=== PATIENT | female | born 1945 | race Caucasian/White ===

== ENCOUNTER → 2016-08-07 | Outpatient (CLI) | payer OTHER ==
[~2016-08-07] MED LIST: NA BICARBONATE 50 MEQ/50 ML VIAL ONE
--- NOTE | 2016-08-07 15:40 | US ---
Ultrasound-guided Fine-needle Aspiration Biopsy of Two Masses of Right Lobe of the Thyroid Gland History: Masses incidentally discovered in the thyroid on CT obtained at another institution. Consent: Risks and benefits of the procedure were discussed in detail. Informed consent was obtained . The patient accepted risks of nondiagnostic sample, internal bleeding, and infection. Technique: The right side of the neck was prepped and draped in sterile fashion. For ultrasound imag ing guidance, the transducer and cable were placed in a sterile cover, and sterile coupling gel was u sed. After local anesthetic with 1% Xylocaine, 7 passes were made with 22-gauge hypodermic needles in to the nodule of the upper pole of the right lobe of the thyroid gland. Then, 7 passes were made into mass of the lower pole of the right lobe. Specimens were sent to cytopathology. Initial report was inadequate cellularity, and additional sampl ing was requested. I then reprepped the neck, injected 1% Xylocaine for local anesthetic, and made 3 additional passes in the nodule of the upper pole and 4 additional passes into the mass of the lower pole of the right lobe of the thyroid gland. The patient asked to stop the procedure at that point. S terile dressings were applied, and the patient was allowed to leave the department. Findings: Well-defined, heterogeneous mass of the upper pole of the right lobe of the thyroid gland m easures 1.5 cm longitudinal x 1.3 cm AP x 1.2 cm transverse. Well-defined elliptical nodule of the lo wer pole of the left lobe of the thyroid gland measures 1.5 cm longitudinal x 0.9 cm AP x 1.7 cm putnam sverse. Viola terminate within these masses. Impression: Ultrasound-guided fine-needle aspiration biopsy of 2 separate masses in the right lobe of the thyroid gland. - - - - - - - - - - - - - - - - - - - - - - - - - - - - - - - - - - - - - - - - - - - - (PQRS Measures: Current medications were listed in the medical record, including all known prescript ions, [id number] medications, herbal medications, and nutritional supplements. Tobacco Use: Non e. Prophylactic antibiotic: Unnecessary. VTE prophylaxis: Unnecessary.)
== END ==
LOC: FIMAGING 12:18
PROVIDERS: ATTEND Surgery
PROC: 0GBH3ZX Excision of Right Thyroid Gland Lobe, Percutaneous Approach, Diagnostic (ICD-10-PCS; principal; 2016-08-07)
DX: E04.1 Nontoxic single thyroid nodule (principal)

== ENCOUNTER → 2016-08-29 | Outpatient (CLI) | payer OTHER ==
--- NOTE | 2016-08-29 16:45 | US ---
Abdomen Retroperitoneal Renal Ultrasound: 1415 hours Indications: Follow-up renal mass on the left. Previous right nephrectomy. Comparison to prior ultrasound from June 04, [address] from March 19, 2016 as well as ult rasound from January 01, 2016. Findings: Left kidney: Within the mid to upper left kidney along the medial aspect there is a hypoec hoic solid nodule that measures 2.6 x 2 x 1.8 cm that allowing for difference in technique appears to be stable when compared to the prior studies. Within the lower pole of the left kidney there is a ti ny hypoechoic additional solid nodule measuring 11 x 8 x 11 mm and appears stable when compared to th e prior CT studies. There is also a 5 mm cyst mid to upper left kidney laterally. No new solid masses are seen. The left kidney in total measures 12 x 5.7 x 5.2 cm with the cortex measuring 1.3 cm in thickness. Th ere are no masses in the right renal fossa from previous nephrectomy. Urinary bladder is unremarkable. No wall thickening or mass. Normal left ureteral jet is visualized. Prevoid volume: 493 mL Postvoid residual: 11 mL Impression: 1. Stable hypoechoic solid mass mid to upper left kidney when compared to the prior studies. 2. Stable small 1 cm hypoechoic mass lower pole left kidney seen on prior CT imaging. 3. Previous right nephrectomy. Consider continued follow-up 3-6 month ultrasound to confirm stability.
== END ==
LOC: FIMAGING 14:07
PROVIDERS: ATTEND Internal Medicine Hematology & Oncology
DX: N28.89 Other specified disorders of kidney and ureter (principal); Z90.5 Acquired absence of kidney

== ENCOUNTER → 2016-11-07 | Outpatient (CLI) | payer OTHER | LOC: BMCIMAGING 11:28 | PROVIDERS: ATTEND Internal Medicine Hematology & Oncology | DX: N28.89 Other specified disorders of kidney and ureter (principal); Z90.5 Acquired absence of kidney ==

== ENCOUNTER 2016-11-28 05:59 | Observation (INO) | payer OTHER ==
[~2016-11-28 05:59] MED LIST changes: -NA BICARBONATE 50 MEQ/50 ML VIAL ONE; +ceFAZolin 2 GM/DEXTROSE 100 ML IV ONE
[2016-11-28] MEDS ORDERED: CEFAZOLIN 2 GM/DEXTROSE/100 ML BAG IV ONE (06:50)
[2016-11-28] MEDS ORDERED: BUPIVACAINE 0.5% 30 ML SDV ONE (06:56)
[2016-11-28] MEDS ORDERED: THROMBIN (BOVINE) 5,000 UNIT VIAL TP ONE (06:56)
[2016-11-28] MEDS ORDERED: MIDAZOLAM 2 MG/2 ML VIAL ONE (07:18)
[2016-11-28] MEDS ORDERED: PROPOFOL 200 MG/20 ML VIAL ONE ×2 (07:26→08:56)
[2016-11-28] MEDS ORDERED: fentaNYL 250 MCG/5 ML INJ ONE (07:27)
[2016-11-28] MEDS ORDERED: LIDOCAINE 2% 5 ML SDV ONE (07:27)
[2016-11-28] MEDS ORDERED: ROCURONIUM 100 MG/10 ML VIAL ONE (07:27)
[2016-11-28] MEDS ORDERED: DEXAMETHASONE 4 MG/ML VIAL ONE (07:27)
[2016-11-28] MEDS ORDERED: ONDANSETRON 4 MG/2 ML VIAL ONE ×2 (07:27→10:45)
[2016-11-28] MEDS ORDERED: NEOSTIGMINE METHYLSULFATE 5 MG/5 ML SYR ONE (09:45)
[2016-11-28] MEDS ORDERED: GLYCOPYRROLATE 0.2 MG/1 ML VIAL ONE ×2 (09:45)
--- NOTE | 2016-11-28 09:46 | POSTOPPROG ---
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
[2016-11-28] MEDS ORDERED: ACETAMINOPHEN 325 MG TAB PO PRN (09:48)
[2016-11-28] MEDS ORDERED: ONDANSETRON 4 MG/2 ML VIAL IVP PRN (09:49)
[2016-11-28] MEDS ORDERED: fentaNYL 100 MCG/2 ML INJ ONE (10:13)
[2016-11-28] MEDS ORDERED: LORazepam 1 MG TAB PO PRN (12:36)
--- NOTE | 2016-11-28 13:19 | GOP ---
[f rep st] OPERATIVE REPORT DATE OF OPERATION: 11/28/2016 SURGEON: Dara Mackey MD SUSPENDER MAKER: Nimco Melara, JORDEN ANESTHESIA: Dr. Tam Dai/general. PREOPERATIVE DIAGNOSIS: Hurthle cell indeterminate for malignancy, right lower lobe thyroid. POSTOPERATIVE DIAGNOSIS: Hurthle cell indeterminate for malignancy, right lower lobe thyroid. PROCEDURE PERFORMED: Right hemithyroidectomy. FINDINGS: nodular thyroid SPECIMENS: Right hemithyroid. ESTIMATED BLOOD LOSS: 10 cc INDICATIONS: The patient is a 71-year-old woman who has had enlarging lymph nodes on her thyroid. They were biopsied and Hurthle cells were noted. We sent this off for additional testing and it was indeterminate if it was malignant. DESCRIPTION OF PROCEDURE: Following induction of general anesthesia, both arms were tucked at the sides and all bony prominences were padded. A roll was placed under the shoulders and the patient was positioned in a modified beach chair position with the neck extended. The neck was prepped and draped in the usual sterile fashion. A 5 cm incision was made at a skin crease approximately 2 fingerbreadths superior to the sternal notch. The subcutaneous tissues and platysma were divided with electrocautery. Subplatysmal flaps were raised inferiorly extending to the sternal notch and superiorly extending to the thyroid cartilage. The strap muscles were divided midline and retracted laterally. The right thyroid lobe was mobilized from its areolar attachments using blunt dissection and electrocautery. There were dominant nodules in both the superior pole and inferior pole. The thyroid was gently retracted medially and the middle thyroid vein was identified. It was ligated with the Harmonic. The thyroid was retracted inferior medially and the superior pole vessels were ligated with the harmonic. Careful attention was made not to injure the external branch of the superior laryngeal nerve. Attention was then turned to mobilization of the inferior pole using blunt dissection. The vessels in this area were ligated with the Harmonic. Next, the thyroid was gently retracted medially and the muscles retracted laterally. The inferior thyroid artery was identified. I ultimately was able to identify the recurrent laryngeal nerve. I protected the recurrent laryngeal nerve as I was dividing the additional vessels. The superior and inferior parathyroid glands were identified and protected. I then was able to complete the dissection at the ligament of Marlow with the Harmonic. It was passed off the field. The wound was irrigated and hemostasis was achieved. The strap muscles were reapproximated with 3-0 Vicryl. The platysma was reapproximated with 3-0 Vicryl. The skin was reapproximated with 4-0 Monocryl. Steri-Strips and a sterile dressing were applied. She was awakened in the operating room, extubated, transferred to PACU in stable condition. /[id number]/MODL MTDD
[2016-11-28] MEDS: HYDROCODONE/APAP 5/325 TAB PO PRN ×2 (17:14→23:39)
[2016-11-29] MEDS: HYDROCODONE/APAP 5/325 TAB PO PRN (09:51)
[2016-11-29] MEDS ORDERED: CALCIUM CARBONATE 500 MG CHEWABLE TAB PO SCH (10:30)
--- NOTE | 2016-11-29 10:31 | SOAPPROG ---
SOAP Progress Note Assessment/Plan: Assessment: POD#1 s/p r hemithyroidectomy Pain controlled regular diet may shower - does not need dressing hypocalcemia - start tums 2 tabs PO BID x 1 week d/c home today. seen c Dr. Mackey. F/u 10 days with Nimco JOLLY. Get labs prior to appt - TSH and Ca+ S: doing well this morning. voice is a little hoarse but improving. pain controlled. No periorbital numbness/tingling O: sitting up in hair, comfortable, eating breakfast no increased WOB neck incision CDI without erythema or swelling Objective: Vital Signs Temp Pulse Resp BP Pulse Ox 37.1 C 62 16 113/62 96 11/29/16 08:31 11/29/16 08:31 11/29/16 08:31 11/29/16 08:31 11/29/16 08:31 11/28/16 11/29/16 11/30/16 05:59 05:59 05:59 Intake Total 2830 Output Total 1255 500 Balance 1575 -500 ICD10 Worksheet Patient Problems: Problems Problem Status Onset Fall Acute Malignant neoplasm of kidney parenchyma Acute Scalp laceration Acute
[2016-11-29 11:46] VITALS: BP 105/54; PULSE 67; RESP 18; TEMP 98.7; O2SAT 94
== END 2016-11-29 14:17 | disposition home or self-care (01) ==
LOC: F3E 05:59
PROVIDERS: ADMIT Surgery; ATTEND Surgery
PROC: 0GTH0ZZ Resection of Right Thyroid Gland Lobe, Open Approach (ICD-10-PCS; principal; 2016-11-28 07:30)
DX: D44.0 Neoplasm of uncertain behavior of thyroid gland (principal); E78.5 Hyperlipidemia, unspecified; I47.1 Supraventricular tachycardia; Z90.5 Acquired absence of kidney; Z85.528 Personal history of other malignant neoplasm of kidney
CPT/HCPCS: 60220; J0690; J1100; J2250; J2405; J2704; J2710; J3010

== ENCOUNTER → 2017-02-26 | Outpatient (CLI) | payer OTHER | LOC: FIMAGING 14:21 | PROVIDERS: ATTEND Internal Medicine Hematology & Oncology | DX: N28.89 Other specified disorders of kidney and ureter (principal); Z90.5 Acquired absence of kidney | CPT/HCPCS: 84481-90 ==

== ENCOUNTER → 2017-03-25 | Outpatient (CLI) | payer OTHER ==
[~2017-03-25] MED LIST changes: +GADOBUTROL 10 ML VIAL IVP ONE; -ceFAZolin 2 GM/DEXTROSE 100 ML IV ONE
== END ==
LOC: FIMAGING 14:58
PROVIDERS: ATTEND Internal Medicine Hematology & Oncology
DX: D49.512 Neoplasm of unspecified behavior of left kidney (principal); C64.1 Malignant neoplasm of right kidney, except renal pelvis
CPT/HCPCS: 74183; A9585

== ENCOUNTER → 2017-07-10 | Outpatient (CLI) | payer OTHER | LOC: FIMAGING 12:22 | PROVIDERS: ATTEND Internal Medicine Hematology & Oncology | DX: N28.1 Cyst of kidney, acquired (principal); K59.00 Constipation, unspecified; C64.2 Malignant neoplasm of left kidney, except renal pelvis | CPT/HCPCS: 74183; 76536; A9585 ==

== ENCOUNTER → 2017-08-25 | Outpatient (CLI) | payer OTHER | LOC: FIMAGING 10:50 | PROVIDERS: ATTEND Internal Medicine Hematology & Oncology | PROC: CP1Z1ZZ Planar Nuclear Medicine Imaging of Musculoskeletal System, All using Technetium 99m (Tc-99m) (ICD-10-PCS; principal; 2017-08-25) | DX: M89.8X7 Other specified disorders of bone, ankle and foot (principal); C64.1 Malignant neoplasm of right kidney, except renal pelvis | CPT/HCPCS: 73600; 78306; A9503 ==

== ENCOUNTER → 2017-12-29 | Outpatient (CLI) | payer OTHER | LOC: FIMAGING 12:39 | PROVIDERS: ATTEND Internal Medicine Hematology & Oncology | DX: Z03.89 Encounter for observation for other suspected diseases and conditions ruled out (principal); C64.9 Malignant neoplasm of unspecified kidney, except renal pelvis | CPT/HCPCS: 72197; 74183; A9585; 82565-PO ==

== ENCOUNTER → 2018-05-10 | Outpatient (CLI) | payer OTHER | LOC: FIMAGING 12:55 | PROVIDERS: ATTEND Internal Medicine Hematology & Oncology | DX: Z08 Encounter for follow-up examination after completed treatment for malignant neoplasm (principal); C64.9 Malignant neoplasm of unspecified kidney, except renal pelvis | CPT/HCPCS: 72197; 74183; A9585 ==

== ENCOUNTER → 2018-07-06 | Outpatient (CLI) | payer OTHER | LOC: FIMAGING 13:06 | PROVIDERS: ATTEND Internal Medicine Hematology & Oncology | DX: Z13.820 Encounter for screening for osteoporosis (principal); M81.0 Age-related osteoporosis without current pathological fracture; Z78.0 Asymptomatic menopausal state ==

== ENCOUNTER → 2018-09-24 | Outpatient (CLI) | payer OTHER | LOC: FIMAGING 12:16 ==

== ENCOUNTER → 2018-10-03 | Outpatient (CLI) | payer OTHER | LOC: FIMAGING 12:04 | PROVIDERS: ATTEND Internal Medicine Hematology & Oncology | DX: R93.7 Abnormal findings on diagnostic imaging of other parts of musculoskeletal system (principal); R91.1 Solitary pulmonary nodule; Z85.528 Personal history of other malignant neoplasm of kidney ==

== ENCOUNTER → 2018-10-05 | Outpatient (CLI) | payer OTHER | LOC: FIMAGING 11:11 | PROVIDERS: ATTEND Internal Medicine Hematology & Oncology | DX: C64.1 Malignant neoplasm of right kidney, except renal pelvis (principal) | CPT/HCPCS: 78306; A9503 ==